=== PATIENT | female | born 1990 | race Caucasian/White ===

== ENCOUNTER 2017-02-18 10:42 | Emergency (ER) | payer OTHER ==
[2017-02-18] MEDS ORDERED: ONDANSETRON HCL IV 4 MG/2 ML VIAL IVP ONE (12:03)
[2017-02-18] MEDS ORDERED: 0.9 % SODIUM CHLORIDE 1,000 ML BAG IV ONE (12:08)
--- NOTE | 2017-02-18 12:08 | Emergency Department Record ---
History of Present Illness - General Chief complaint: Vomiting Stated complaint: VOMITING X 9 DAYS Time Seen by Provider: 02/18/17 10:51 Source: Patient, RN notes reviewed Mode of Arrival: Ambulatory - History of Present Illness Initial comments: vomiting for 9 days and about 8 weeks PoG1. No diarrhea Onset/Timin -: Days(s) - Related Data Home Medications Medication Instructions Recorded Confirmed Last Taken Ondansetron [Zofran Odt] 8 mg PO 02/18/17 02/17/17 21:00 Allergies Allergy/AdvReac Type Severity Reaction Status Date / Time No Known Drug Allergies Allergy Verified 02/18/17 10:52 Travel Screening - Travel/Exposure Within Last 30 Days Have you traveled within the last 30 days?: No - Travel/Exposure Within Last Year Have you traveled outside the [place] in the last year?: No - Additonal Travel Details Have you been exposed to anyone with a communicable illness?: No - Travel Symptoms Symptom Screening: None Review of Systems Reviewed: No additional complaints except as noted below Constitutional: Reports: As per HPI. Denies: Chills, Fever, Malaise, Night sweats, Weakness, Weight change Eyes: Reports: As per HPI. Denies: Eye discharge, Eye pain, Photophobia, Vision change ENT: Reports: As per HPI. Denies: Congestion, Dental pain, Ear pain, Epistaxis , Hearing loss, Throat pain Respiratory: Reports: As per HPI. Denies: Cough, Dyspnea, Hemoptysis, Stridor, Wheezes Cardiovascular: Reports: As per HPI. Denies: Arrhythmia, Chest pain, Dyspnea on exertion, Edema, Murmurs, Orthopnea, Palpitations, Paroxysmal nocturnal dyspnea, Rheumatic Fever, Syncope Endocrine: Reports: As per HPI. Denies: Fatigue, Heat or cold intolerance, Polydipsia, Polyuria Gastrointestinal: Reports: As per HPI, Nausea, Vomiting. Denies: Abdominal pain , Constipation, Diarrhea, Hematemesis, Hematochezia, Melena Genitourinary: Reports: As per HPI. Denies: Abnormal menses, Discharge, Dyspareunia, Dysuria, Frequency, Hematuria, Incontinence, Retention, Urgency Musculoskeletal: Reports: As per HPI. Denies: Arthralgia, Back pain, Gout, Joint swelling, Myalgia, Neck pain Skin: Reports: As per HPI. Denies: Bruising, Change in color, Change in hair/ nails, Lesions, Pruritus, Rash Neurological: Reports: As per HPI. Denies: Abnormal gait, Confusion, Headache, Numbness, Paresthesias, Seizure, Tingling, Tremors, Vertigo, Weakness Psychiatric: Reports: As per HPI. Denies: Anxiety, Auditory hallucinations, Depression, Homicidal thoughts, Suicidal thoughts, Visual hallucinations Hematological/Lymphatic: Reports: As per HPI. Denies: Anemia, Blood Clots, Easy bleeding, Easy bruising, Swollen glands Past Medical History - SOCIAL HISTORY Smoking Status: Never smoker Alcohol Use: None Drug Use Detail:: Marijuana - RESPIRATORY Hx Respiratory Disorders: No - CARDIOVASCULAR Hx Cardio Disorders: Yes Hx Palpitations: Yes Comment:: low blood flow to heart per pt - pt seeing Dr - NEURO Hx Neuro Disorders: No - GI Hx GI Disorders: Yes Comment:: vomitting - Hx Genitourinary Disorders: No - ENDOCRINE Hx Endocrine Disorders: No - MUSCULOSKELETAL Hx Musculoskeletal Disorders: No - PSYCH Hx Psych Problems: No - HEMATOLOGY/ONCOLOGY Hx Hematology/Oncology Disorders: No Family Medical History Any Significant Family History?: Yes Hx Heart Disease: Grandparents Physical Exam - General General Appearance: Alert, Oriented x3, Cooperative, No acute distress - Head Head exam: Normal inspection - Eye Eye exam: Normal appearance, PERRL Pupils: Normal accommodation - ENT ENT exam: Normal exam, Mucous membranes moist, Normal external ear exam, Normal orophraynx, TM's normal bilaterally Ear exam: Normal external inspection. negative: External canal tenderness Nasal Exam: Normal inspection. negative: Discharge, Sinus tenderness Mouth exam: Normal external inspection, Tongue normal Teeth exam: Normal inspection. negative: Dental caries Throat exam: Normal inspection. negative: Tonsillar erythema, Tonsillar exudate - Neck Neck exam: Normal inspection, Full ROM. negative: Tenderness - Respiratory Respiratory exam: Normal lung sounds bilaterally. negative: Respiratory distress - Cardiovascular Cardiovascular Exam: Regular rate, Normal rhythm, Normal heart sounds - GI/Abdominal GI/Abdominal exam: Soft, Normal bowel sounds. negative: Tenderness - Rectal Rectal exam: Deferred - exam: Deferred - Extremities Extremities exam: Normal inspection, Full ROM, Normal capillary refill. negative: Tenderness - Back Back exam: Reports: Normal inspection, Full ROM. Denies: Muscle spasm, Rash noted, Tenderness - Neurological Neurological exam: Alert, Normal gait, Oriented X3, Reflexes normal - Psychiatric Psychiatric exam: Normal affect, Normal mood - Skin Skin exam: Dry, Intact, Normal color, Warm Course Vital Signs 02/18/17 10:49 Temperature 97.5 F L Pulse Rate [ 78 Pulse Ox Probe] Respiratory 25 H Rate Blood Pressure 121/66 [Left Arm] Pulse Ox 99 vomiting in ED Medical Decision Making - Data Complexity MDM Data: Labs Ordered and/or Reviewed - Lab Data Result diagrams: 02/18/17 11:00 02/18/17 11:00 Disposition Clinical Impression: Hyperemesis gravidarum Qualifiers: Weeks of gestation: 8 weeks Qualified Code(s): Z3A.08 - 8 weeks gestation of Disposition: Home, Self-Care Condition: (1) Good Instructions: Hyperemesis Gravidarum (ED) Additional Instructions: follow up with ob on monday Forms: Patient Portal Access Time of Disposition: 13:11
[2017-02-18] MEDS ORDERED: 0.9 % SODIUM CHLORIDE 1000ML 1,000 ML IV SCH (12:15)
[2017-02-18 12:19] LABS: BASO % 0.3 % (0-6); EOS % 0.4 % (0-6); HEMATOCRIT 41.4 % (35.0-47.0); HEMOGLOBIN 13.7 gm/dl (11.6-16.0); LYMPH % 15.9 % (16-45); MEAN CELL VOLUME 88.7 fl (81-97); MEAN CORPUSCULAR HEMOGLOBIN 29.3 pg (27-33); MEAN CORPUSCULAR HGB CONC 33.1 g/dl (32-36); MONO % 7.4 % (0-9); PLATELET COUNT 347 K/uL (130-400); RED BLOOD COUNT 4.67 M/uL (3.80-5.40); RED CELL DISTRIBUTION WIDTH 12.4 % (11.5-14.5); WHITE BLOOD COUNT W/O DIFF 8.9 K/uL (4.2-12.2)
[2017-02-18 12:29] LABS: BLOOD UREA NITROGEN 6 mg/dL (7-17); CREATININE 0.6 mg/dL (0.52-1.04); EST GLOMERULAR FILTRATION RATE > 60 ml/min; GLUCOSE,RANDOM 92 mg/dL (70-110)
== END 2017-02-18 14:15 | disposition home or self-care (01) ==
LOC: ER 10:42
DX: O21.0 Mild hyperemesis gravidarum (principal); Z3A.08 8 weeks gestation of pregnancy
CPT/HCPCS: 99284 ×2; 96374; 96361; 83690; 85025; 84702; 80048; J2405; J7030

== ENCOUNTER 2017-05-12 03:28 | Emergency (ER) | payer OTHER ==
--- NOTE | 2017-05-12 03:32 | Emergency Department Record ---
History of Present Illness - General Chief complaint: Pain Stated complaint: TAILBONE PAIN Time Seen by Provider: 05/12/17 03:31 Source: Patient - History of Present Illness Initial comments: The patient states that she injured her tailbone about 10 years ago. For the past 2-3 weeks she states her tailbone has been hurting, and radiating into her left buttock. She states that BM's are not painful, that she has no constipation , but that she hurts to sit in certain positions, and tonight she hurt so much she couldn't turn over in bed easily or sleep due to the pain. She is 19 weeks . She has been seen at her OB and has her next appointment in 4 days. She denies f,c,v,d,ap, cough, st, URI symptoms, or urinary symptoms other than a touch of frequency. In her first trimester she had nausea and vomiting, but that has greatly improved. - Related Data Home Medications Medication Instructions Recorded Confirmed Last Taken Ondansetron [Zofran Odt] 8 mg PO Q6HR PRN 02/18/17 05/12/17 02/17/17 21:00 Cyclobenzaprine HCl [Flexeril] 10 mg PO TID 05/12/17 05/12/17 Unknown Allergies Allergy/AdvReac Type Severity Reaction Status Date / Time No Known Drug Allergies Allergy Verified 02/18/17 10:52 Review of Systems Reviewed: No additional complaints except as noted below Constitutional: Reports: As per HPI. Denies: Chills, Fever, Malaise, Night sweats, Weakness, Weight change Eyes: Reports: As per HPI. Denies: Eye discharge, Eye pain, Photophobia, Vision change ENT: Reports: As per HPI. Denies: Congestion, Dental pain, Ear pain, Epistaxis , Hearing loss, Throat pain Respiratory: Reports: As per HPI. Denies: Cough, Dyspnea, Hemoptysis, Stridor, Wheezes Cardiovascular: Reports: As per HPI. Denies: Arrhythmia, Chest pain, Dyspnea on exertion, Edema, Murmurs, Orthopnea, Palpitations, Paroxysmal nocturnal dyspnea, Rheumatic Fever, Syncope Endocrine: Reports: As per HPI. Denies: Fatigue, Heat or cold intolerance, Polydipsia, Polyuria Gastrointestinal: Reports: As per HPI. Denies: Abdominal pain, Constipation, Diarrhea, Hematemesis, Hematochezia, Melena, Nausea, Vomiting Genitourinary: Reports: As per HPI. Denies: Abnormal menses, Discharge, Dyspareunia, Dysuria, Frequency, Hematuria, Incontinence, Retention, Urgency Musculoskeletal: Reports: As per HPI. Denies: Arthralgia, Back pain, Gout, Joint swelling, Myalgia, Neck pain Skin: Reports: As per HPI. Denies: Bruising, Change in color, Change in hair/ nails, Lesions, Pruritus, Rash Neurological: Reports: As per HPI. Denies: Abnormal gait, Confusion, Headache, Numbness, Paresthesias, Seizure, Tingling, Tremors, Vertigo, Weakness Psychiatric: Reports: As per HPI. Denies: Anxiety, Auditory hallucinations, Depression, Homicidal thoughts, Suicidal thoughts, Visual hallucinations Hematological/Lymphatic: Reports: As per HPI. Denies: Anemia, Blood Clots, Easy bleeding, Easy bruising, Swollen glands Past Medical History - SOCIAL HISTORY Smoking Status: Never smoker Drug Use Detail:: Marijuana - RESPIRATORY Hx Respiratory Disorders: No - CARDIOVASCULAR Hx Cardio Disorders: Yes Hx Palpitations: Yes Comment:: low blood flow to heart per pt - pt seeing Dr - NEURO Hx Neuro Disorders: No - GI Hx GI Disorders: Yes Comment:: vomitting - Hx Genitourinary Disorders: No - ENDOCRINE Hx Endocrine Disorders: No - MUSCULOSKELETAL Hx Musculoskeletal Disorders: No - PSYCH Hx Psych Problems: No - HEMATOLOGY/ONCOLOGY Hx Hematology/Oncology Disorders: No Family Medical History Any Significant Family History?: No Hx Heart Disease: Grandparents Physical Exam - General General Appearance: Alert, Oriented x3, Cooperative, Mild distress (sitting in an uncomfortable appearing position) - Head Head exam: Normal inspection - Eye Eye exam: Normal appearance, PERRL Pupils: Normal accommodation - ENT ENT exam: Normal exam, Mucous membranes moist, Normal external ear exam, Normal orophraynx, TM's normal bilaterally Ear exam: Normal external inspection. negative: External canal tenderness Nasal Exam: Normal inspection. negative: Discharge, Sinus tenderness Mouth exam: Normal external inspection, Tongue normal Teeth exam: Normal inspection. negative: Dental caries Throat exam: Normal inspection. negative: Tonsillar erythema, Tonsillar exudate - Neck Neck exam: Normal inspection, Full ROM. negative: Tenderness - Respiratory Respiratory exam: Normal lung sounds bilaterally. negative: Respiratory distress - Cardiovascular Cardiovascular Exam: Normal rhythm, Normal heart sounds, Tachycardia - GI/Abdominal GI/Abdominal exam: Soft, Normal bowel sounds, Other (uterus palpable approximately to umbilicus, no tenderness.). negative: Tenderness - Rectal Rectal exam: Deferred, Other (tailbone palpated with denial of tenderness or of being her location of chief complaint; no hemorrhoids, lesions, or tenderness.) . negative: Tenderness - exam: Deferred - Extremities Extremities exam: Normal inspection, Full ROM, Normal capillary refill. negative: Calf tenderness, Pedal edema, Tenderness - Back Back exam: Reports: Normal inspection, Full ROM, Other (left sacro-illiac joint area of most tenderness on palpation). Denies: CVA tenderness (R), CVA tenderness (L), Muscle spasm, Rash noted, Tenderness - Neurological Neurological exam: Alert, Normal gait, Oriented X3, Reflexes normal - Psychiatric Psychiatric exam: Normal affect, Normal mood - Skin Skin exam: Dry, Intact, Normal color, Warm Course - Reevaluation(s) Reevaluation #1: The patient states that she stands at work and this pain progresses throughout her work shift until it is severe, like tonight when she got off work. She states it is much better on her days off. She also is feeling nauseated and dehydrated. 05/12/17 04:05 Reevaluation #2: Patient is starting to feel slightly better. Second liter ordered, still slightly nauseated. Attempting to obtain a second urine, 1st was contaminated. 05/12/17 04:53 Reevaluation #3: Feeling better after IV tylenol. Will discharge when 3rd liter is complete. 05/12/17 05:38 Medical Decision Making - Management Options MDM Management: No Additional Work-up Planned - Data Complexity MDM Data: Labs Ordered and/or Reviewed - Lab Data Result diagrams: 05/12/17 04:10 05/12/17 04:10 Disposition Disposition: Discharge Clinical Impression: Sacroiliac inflammation, Nausea and vomiting during prior to 22 weeks gestation, Dehydration Disposition: Home, Self-Care Condition: (1) Good Instructions: Nausea and Vomiting in (ED) Additional Instructions: Zofran as directed for nausea and vomiting. Increase fluid intake. tylenol as directed as needed for pain. No prolonged standing. Off work today. 05-12-17. Follow up with OB next week as previously arranged. Quality - Quality Measures Quality Measures: - : US Determination Quality Measure: Measure #254: US Determination of Location US Determination of Location: Trans-Abdominal or Trans-Vaginal US NOT Performed w/Reasons [[id number]] Reason for No US: Documented Intrauterine - : Rhogam Quality Measure: Measure #255: Rhogam for Rh-Negative Women Rhogam for Rh-Negative Women at Risk: Rh-immunoglobulin NOT Ordered [ [id number]] Reason for not prescribing Rhogam: Other - Blood Pressure Screening Does Patient Have Any of the Following: No Blood Pressure Classification: Normal BP Reading Systolic Measurement: 100 Diastolic Measurement: 67 Screening for High Blood Pressure: < Normal BP, F/U Not Required > [H0583]
[2017-05-12] MEDS ORDERED: ONDANSETRON HCL IV 4 MG/2 ML VIAL IV ONE (04:04)
[2017-05-12] MEDS ORDERED: 0.9 % SODIUM CHLORIDE 1,000 ML BAG IV ONE ×3 (04:04→05:38)
[2017-05-12 04:06] LABS: URINE APPEARANCE CLEAR; URINE BILIRUBIN SMALL (NEGATIVE); URINE BLOOD NEGATIVE (NEGATIVE); URINE COLOR YELLOW; URINE GLUCOSE (UA) NEGATIVE (NEGATIVE); URINE KETONE TRACE (NEGATIVE); URINE LEUKOCYTE ESTERASE TRACE (NEGATIVE); URINE NITRITE NEGATIVE (NEGATIVE); URINE PROTEIN NEGATIVE (NEGATIVE); URINE UROBILINOGEN 0.2 E.U./dL (0.20 - 1.00)
[2017-05-12 04:20] LABS: URINE BACTERIA 2+; URINE MUCUS HEAVY
[2017-05-12 04:22] LABS: BASO % 0.3 % (0-6); EOS % 1.3 % (0-6); GRAN % 70.8 % (47-80); HEMATOCRIT 31.4 % (35.0-47.0); HEMOGLOBIN 10.4 gm/dl (11.6-16.0); LYMPH % 21.7 % (16-45); MEAN CELL VOLUME 91.3 fl (81-97); MEAN CORPUSCULAR HEMOGLOBIN 30.2 pg (27-33); MEAN CORPUSCULAR HGB CONC 33.1 g/dl (32-36); MEAN PLATELET VOLUME 9.6 fl (7.4-10.4); MONO % 5.9 % (0-9); PLATELET COUNT 295 K/uL (130-400); RED BLOOD COUNT 3.44 M/uL (3.80-5.40); RED CELL DISTRIBUTION WIDTH 12.7 % (11.5-14.5); WHITE BLOOD COUNT W/O DIFF 9.5 K/uL (4.2-12.2)
[2017-05-12 04:32] LABS: ALBUMIN 3.7 gm/dL (3.5-5.0); ALKALINE PHOSPHATASE 50 U/L (38-126); ALT/SGPT 34 U/L (9-52); ANION GAP 8.9 (7-16); AST/SGOT 14 U/L (14-36); BILIRUBIN,TOTAL 0.67 mg/dL (0.2-1.3); BLOOD UREA NITROGEN 4 mg/dL (7-17); CARBON DIOXIDE 25.1 mmol/L (22-30); CREATININE 0.6 mg/dL (0.52-1.04); EST GLOMERULAR FILTRATION RATE > 60 ml/min; GLUCOSE,RANDOM 105 mg/dL (70-110); LIPASE 77 U/L (23-300); TOTAL PROTEIN 6.7 gm/dL (6.3-8.2)
[2017-05-12 05:15] LABS: URINE APPEARANCE CLEAR; URINE BILIRUBIN NEGATIVE (NEGATIVE); URINE BLOOD NEGATIVE (NEGATIVE); URINE COLOR YELLOW; URINE GLUCOSE (UA) NEGATIVE (NEGATIVE); URINE KETONE NEGATIVE (NEGATIVE); URINE LEUKOCYTE ESTERASE NEGATIVE (NEGATIVE); URINE NITRITE NEGATIVE (NEGATIVE); URINE PROTEIN TRACE (NEGATIVE)
[2017-05-12] MEDS ORDERED: ACETAMINOPHEN 1,000 MG/100 ML BTL IVPB ONE (05:43)
== END 2017-05-12 06:29 | disposition home or self-care (01) ==
LOC: ER 03:28
DX: O21.1 Hyperemesis gravidarum with metabolic disturbance (principal); M53.3 Sacrococcygeal disorders, not elsewhere classified; Z3A.19 19 weeks gestation of pregnancy
CPT/HCPCS: 99284 ×2; 96365; 96375; 96361; 83690; 85025; 80076; 80048; 81001; 81003; 86901; J2405; J7030